=== PATIENT | male | born 1975 | race African-American/Black ===

== ENCOUNTER 2020-09-09 12:21 | Emergency (ER) | payer BC ==
[2020-09-09 12:43] VITALS: BP 129/84; PULSE 107; TEMP 98.5; BMI 27.8
== END 2020-09-09 13:51 | disposition home or self-care (01) ==
LOC: JERFT 12:21
PROC: 0H96XZZ Drainage of Back Skin, External Approach (ICD-10-PCS; principal; 2020-09-09)
DX: L02.212 Cutaneous abscess of back [any part, except buttock and flank] (principal); L02.213 Cutaneous abscess of chest wall
CPT/HCPCS: 71101-TC-RT-FY; 93005; 93010; 99283-25

== ENCOUNTER 2021-03-19 11:23 | Emergency (ER) | payer BC ==
[2021-03-19 11:31] VITALS: BP 121/75; PULSE 78; TEMP 98.3; BMI 27.1
[2021-03-19] MEDS ORDERED: KETOROLAC TROMETHAMINE 60 MG/2 ML VIAL IM ONE (13:04)
[2021-03-19] MEDS ORDERED: KETOROLAC TROMETHAMINE 30 MG/1 ML VIAL ONE (13:12)
== END 2021-03-19 13:23 | disposition home or self-care (01) ==
LOC: JERFT 11:23
PROC: 3E0233Z Introduction of Anti-inflammatory into Muscle, Percutaneous Approach (ICD-10-PCS; principal; 2021-03-19)
DX: M77.11 Lateral epicondylitis, right elbow (principal)
CPT/HCPCS: 99284-25